=== PATIENT | male | born 1990 | race African-American/Black ===

== ENCOUNTER 2019-03-29 14:45 | Emergency (ER) | payer SELFPAY ==
[~2019-03-29] VITALS: Ht 180.3 cm; Wt 81.6 kg
[2019-03-29 14:51] VITALS: BP 127/71; Ht 180.3 cm; Wt 81.6 kg
== END 2019-03-29 15:22 | disposition left against medical advice (07) ==
LOC: ED 14:45
DX: Z53.21 Procedure and treatment not carried out due to patient leaving prior to being seen by health care provider (principal)

== ENCOUNTER 2019-07-02 13:29 | Emergency (ER) | payer OTHER | END 2019-07-02 14:47 | disposition left against medical advice (07) | LOC: ED 13:29 | DX: Z53.21 Procedure and treatment not carried out due to patient leaving prior to being seen by health care provider (principal) ==

== ENCOUNTER 2020-01-01 07:39 | Emergency (ER) | payer OTHER ==
[~2020-01-01] VITALS: Ht 182.9 cm; Wt 81.6 kg
[2020-01-01 07:50] VITALS: Ht 182.9 cm; Wt 81.6 kg
[2020-01-01 08:16] LABS: BASOPHIL % 0.5 % (0-2); PLATELET COUNT 255 x10^3mcL (130-400); RED CELL DISTRIBUTION WIDTH 13.3 % (11.5-14.5)
[2020-01-01 08:17] LABS: CALCIUM 8.6 mg/dL (8.5-10.1); CARBON DIOXIDE 17.1 mmol/L (21-32); CHLORIDE SERUM 102 mmol/L (98-107); CREATININE SERUM 1.5 mg/dL (0.7-1.3); GFR1 58 mL/min; GLUCOSE SERUM 230 mg/dL (74-106); POTASSIUM SERUM 4.2 mmol/L (3.5-5.1); SODIUM SERUM 137 mmol/L (136-145)
[2020-01-01 08:21] LABS: ALBUMIN 4.1 g/dL (3.4-5.0); ALKALINE PHOSPHATASE 67 U/L (46-116); ALT/SGPT 35 U/L (16-63); AST/SGOT 30 U/L (15-37); BILIRUBIN TOTAL 0.7 mg/dL (0.20-1.00); MAGNESIUM 2.3 mg/dL (1.8-2.4); TOTAL PROTEIN, SERUM 7.4 g/dL (6.4-8.2)
[2020-01-01 09:41] LABS: UA SPECIFIC GRAVITY 1.025 (1.005-1.035); microscopic required? YES; urine erythrocyte TRACE (NEGATIVE)
[2020-01-01 09:47] VITALS: BP 101/63
[2020-01-01 09:53] LABS: AMPHETAMINE QUAL UR NONE DETECTED (See below)
== END 2020-01-01 09:47 | disposition home or self-care (01) ==
LOC: ED 07:39
PROVIDERS: Emergency Medicine
DX: G40.909 Epilepsy, unspecified, not intractable, without status epilepticus (principal); E74.39 Other disorders of intestinal carbohydrate absorption; N18.3 Chronic kidney disease, stage 3 (moderate); F12.20 Cannabis dependence, uncomplicated
CPT/HCPCS: 82962; G0480

== ENCOUNTER 2020-07-03 13:21 | Inpatient (IN) | payer OTHER ==
[~2020-07-03] VITALS: Ht 175.3 cm; Wt 86.7 kg
[2020-07-03 14:00] VITALS: Ht 175.3 cm; Wt 86.7 kg
[2020-07-03 15:45] LABS: CALCIUM 9.4 mg/dL (8.5-10.1); CARBON DIOXIDE 11.6 mmol/L (21-32); CREATININE SERUM 2.2 mg/dL (0.7-1.3); POTASSIUM SERUM 4.4 mmol/L (3.5-5.1)
[2020-07-03 15:49] LABS: BILIRUBIN TOTAL 0.5 mg/dL (0.20-1.00)
[2020-07-03 15:52] LABS: TOTAL PROTEIN, SERUM 8.4 g/dL (6.4-8.2)
[2020-07-03 16:30] LABS: RED CELL DISTRIBUTION WIDTH 13.2 % (12.1-16.2)
[2020-07-03 16:31] LABS: BASOPHIL % 0.2 % (0.2-1.5); PLATELET COUNT 311 x10^3mcL (152-348)
[2020-07-03 17:37] LABS: rbc morphology (normal/abnorm) NORMAL (NORMAL)
[2020-07-03 22:32] LABS: microscopic required? YES; urine erythrocyte 3+ (NEGATIVE)
[2020-07-03 22:34] LABS: TOTAL PROTEIN CSF 58.8 mg/dL (15-45)
[2020-07-03] MEDS ORDERED: VIMPAT50 MG PO (22:56)
[2020-07-03] MEDS ORDERED: LEVETIRACETAM1000 M1 PO (22:59)
[2020-07-03] MEDS ORDERED: TOPAMAX25 MG PO (22:59)
[2020-07-03 23:19] LABS: APPEARANCE CSF CLEAR; COLOR CSF COLORLESS
[2020-07-03 23:21] LABS: RBC CSF 2 /cumm (0); WBC CSF 1 /cumm (0-5)
[2020-07-04 04:13] VITALS: BP 135/76
[2020-07-04 05:20] VITALS: BP 108/63
[2020-07-04 08:07] VITALS: BP 108/59
[2020-07-04 10:09] LABS: BASOPHIL % 0.3 % (0.2-1.5); PLATELET COUNT 238 x10^3mcL (152-348); RED CELL DISTRIBUTION WIDTH 13.1 % (12.1-16.2)
[2020-07-04 11:28] VITALS: BP 107/56
[2020-07-04 13:32] VITALS: BP 107/56
[2020-07-04 13:56] LABS: rbc morphology (normal/abnorm) NORMAL (NORMAL)
[2020-07-04 18:37] LABS: CALCIUM 8.7 mg/dL (8.5-10.1); CARBON DIOXIDE 19.4 mmol/L (21-32); CHLORIDE SERUM 109 mmol/L (98-107); CREATININE SERUM 1.2 mg/dL (0.7-1.3); GFR1 > 60 mL/min; GLUCOSE SERUM 87 mg/dL (74-106); MAGNESIUM 2.6 mg/dL (1.8-2.4); PHOSPHOROUS 3.1 mg/dL (2.5-4.9); POTASSIUM SERUM 4.1 mmol/L (3.5-5.1); SODIUM SERUM 141 mmol/L (136-145)
[2020-07-05 07:08] LABS: RAPID PLASMA REAGIN Non Reactive (Non Reactive)
== END 2020-07-04 14:10 | disposition home or self-care (01) | DRG 53 ==
LOC: ED 13:21 → DU 22:14
PROVIDERS: Emergency Medicine; ADMIT Internal Medicine; ATTEND Internal Medicine
PROC: 009U3ZX Drainage of Spinal Canal, Percutaneous Approach, Diagnostic (ICD-10-PCS; principal; 2020-07-03)
DX: G40.409 Other generalized epilepsy and epileptic syndromes, not intractable, without status epilepticus (principal); G04.90 Encephalitis and encephalomyelitis, unspecified; E87.2 Acidosis; D72.829 Elevated white blood cell count, unspecified; Z20.828 Contact with and (suspected) exposure to other viral communicable diseases
CPT/HCPCS: 87804; G0378; J0133; J0696; J1953; J2060; J2405; J3490; J7030; U0003